=== PATIENT | male | born 1950 | race Hispanic/Latino ===

== ENCOUNTER → 2017-02-09 | Outpatient (CLI) | payer SELFPAY ==
--- NOTE | 2017-02-09 14:45 | DI ---
XR FOOT COMPLETE MIN 3VW WB,02/09/2017 12:39 PM: Clinical History: Left foot pain. Previous Exam: None at this facility. Findings: 3 weightbearing views of the left foot are obtained, and demonstrate degenerative changes involving t he left first metatarsophalangeal joint. There are no erosions. Mineralization is within normal limit s. The alignment is anatomic. There are peripheral vascular calcifications noted within the dorsalis pedis artery. Surrounding soft tissues are unremarkable. Impression: Degenerative changes the left first metatarsophalangeal joint is unremarkable.
== END ==
LOC: MOB RAD 12:42
PROVIDERS: ATTEND Physician Assistant Medical
DX: M79.672 Pain in left foot (principal); M10.9 Gout, unspecified; M19.072 Primary osteoarthritis, left ankle and foot
CPT/HCPCS: 73630